=== PATIENT | female | born 1945 | race Caucasian/White ===

== ENCOUNTER 2018-08-23 10:43 | Inpatient (IN) | payer OTHER ==
[~2018-08-23] VITALS: Ht 144.8 cm; Wt 118.8 kg
[~2018-08-23 10:43] MED LIST: ALBUTEROL IH; APR50 PO; CAT0.1 PO; COZ50 PO; ECO81 PO; K10 PO; NORCO PO; PREMARIN0.625 M PO; PRILOSEC20 PO; TABL PO
[2018-08-23 10:48] VITALS: Ht 144.8 cm; Wt 118.8 kg
--- NOTE | 2018-08-23 11:21 | NUR ---
DR LENNON AT BEDSIDE WITH PT TO DISCUSS PLAN OF CARE
[2018-08-23 11:23] LABS: BASOPHIL % 0.3 % (0-2); PLATELET COUNT 400 x10^3mcL (130-400)
[2018-08-23 11:26] LABS: RED CELL DISTRIBUTION WIDTH 15.2 % (11.5-14.5)
[2018-08-23 11:34] LABS: CALCIUM 8.9 mg/dL (8.5-10.1); CHLORIDE SERUM 102 mmol/L (98-107); CREATININE SERUM 1.4 mg/dL (0.6-1.0); GLUCOSE SERUM 123 mg/dL (74-106); POTASSIUM SERUM 3.4 mmol/L (3.5-5.1); SODIUM SERUM 140 mmol/L (136-145)
[2018-08-23 11:38] LABS: ALBUMIN 3.8 g/dL (3.4-5.0); ALKALINE PHOSPHATASE 154 U/L (46-116); ALT/SGPT 29 U/L (14-59); AST/SGOT 21 U/L (15-37); BILIRUBIN TOTAL 0.71 mg/dL (0.20-1.00); LIPASE 48 IU/L (73-393); TOTAL PROTEIN, SERUM 8.3 g/dL (6.4-8.2)
--- NOTE | 2018-08-23 11:38 | NUR ---
X-RAY AT BEDSIDE WITH PT
--- NOTE | 2018-08-23 11:58 | NUR ---
PT TAKEN TO CT,
--- NOTE | 2018-08-23 12:22 | NUR ---
PT RETURNED FROM CT, IV BOLUS CONTINED. VEBRLAIZED MILD NAUSEA. NAD. SITTING COMFORTABLE. IS ABLE TO COMMUNICATE IN CLEAR SENTENCES. SON AT BEDSIDE
--- NOTE | 2018-08-23 13:15 | NUR ---
PT VERBALIZED A PINT OF BEER TODAY UNKNOWN TIME. PT APPEARS DELUSIONAL AND LAUGHES AT INAPPROPRIATE TIMES. PT WAS EDUCATED TO COOPEARTATE WITH STAFF AND CONTINUED SET BOUDNRIES PER STAFF.
[2018-08-23] MEDS ORDERED: CELEBREX200 MG PO (13:43)
[2018-08-23] MEDS ORDERED: METOPROLOL SUCC50 M2 PO (13:44)
[2018-08-23] MEDS ORDERED: NOR10 PO (13:46)
[2018-08-23] MEDS ORDERED: PANTOPRAZOLE SO40 M1 PO (13:46)
[2018-08-23] MEDS ORDERED: COZAAR100 MG PO (13:47)
--- NOTE | 2018-08-23 14:12 | NUR ---
REPORT GIVEN TO ROOSEVELT FOR ASSUME CARE OF PATICARLOS. REASSESSMENT OF PAIN IS 2/10 NAD. SPEAKS IN CLEAR SENTENCES WITHOUT DISCOMFORT
[2018-08-23 14:47] VITALS: BP 149/93
--- NOTE | 2018-08-23 14:49 | NUR ---
RECEIVED PT FROM ED VIA GRISEL. ORIENTED PT TO ROOM AND SURROUNDINGS. IV NOTED TO RAC PATENT AND INTACT. INSTRUCTED PT ON THE USE OF CALL LIGHT FOR ASSISTANCE.
--- NOTE | 2018-08-23 16:30 | NUR ---
ASSUMED CARE OF PATIENT FROM SURU- RN. PATIENT IS ALERT, ORIENTED X4, DENIES PAIN OR DISCOMFORT. DAUGHTER AT BEDSIDE. ABDOMEN IS SOFT WITH ACTIVE BOWEL SOUNDS.PATIENT HAS AN OLD SCAR AT ABDOMEN FROM A WOUND THAT HAD WOUND VAC LAST YEAR. LAST BM LAST NIGHT AND WAS WAS DIARRHEA. NO N/V AWAITING DR GONZALES CONSULTATION AT THIS TIME. CALL LIGHT WITHIN REACH. WILL CONTINUE TO MONITOR PATIENT AND MAINTAIN SAFETY.
--- NOTE | 2018-08-23 17:22 | NUR ---
DR GONZALES HERE TO SEE PATIENT. RECEIVED ORDER FOR NGT INSERTION. SPOKE WITH PATIENT'S DAUGHTER AND SHE SAID THAT PATIENT IS GETTING ANXIOUS AND COMBATIVE AT TIMES AND PATIENT'S NEPHEW WILL BE HERE SHORTLY AND ASKED STAFF TO HOLD NGT INSERTION UNTILL NEPHEW GET HERE. NS 50CC/HR INFUSING AT RT AC. WILL CONTINUE TO MONIOTR PATIENT.
[2018-08-23 17:41] VITALS: BP 148/85
--- NOTE | 2018-08-23 18:09 | NUR ---
CHARO AT BEDSIDE. NGT SIZE #14 INSERTED AT THIS TIME, RT SAMY. PATIENT TOLERATED WELL THE PROCEDURE. KUB ORDERED TO CHECK PLACEMENT. CALL LIGHT WITHIN REACH. WILL CONTINUE TO MONITOR PATIENT AND MAINTAIN SAFETY.
--- NOTE | 2018-08-23 19:07 | NUR ---
BEDSIDE REPORT GIVEN TO BARBARA. ALL QUESTIONS ANSWERED.
--- NOTE | 2018-08-23 20:21 | NUR ---
PT SEEN, RESTING IN BED, ALERT AND ORIENTED, DENIES HEADACHE OR DIZZINESS, BREATHING EVEN AND UNLABORED, LUNG SOUNDS CLEAR BUT DIMINISHED AT BASE, PT DE-SATTING ON ROOM AIR, SPO2 ONLY 86-88% ON ROOM AIR, PLACED PT ON O2 2L VIA NC WITH SPO2 > 95%, DENIES CHEST PAIN, NGT TO RT NARES, XR-ABD RESULT CAME BACK AND CONFIRMED NGT IN PLACE, DR PHAN MADE AWARE, NEW ORDER RECEIVED FOR NGT WITH LIS, STARTING NGT WITH LIS, ABD DISTENDED BUT SOFT WITH HYPOACTIVE BS, C/O OF ON AND OFF ABD PAIN, DILAUDID 0.5 MG VIA IVP ADMINISTERED, NO DISTRESS NOTED, WILL KEEP TO MONITOR.
--- NOTE | 2018-08-23 20:43 | NUR ---
dr ruiz informed about dr elliott recommendation for a surgical consult.
[2018-08-23 21:12] VITALS: BP 143/82
--- NOTE | 2018-08-23 21:30 | NUR ---
PT DENIES ANY ABD PAIN AFTER MEDICATED WITH DILAUDID IVP, NGT WITH LIS NOTED WITH 300 ML LIGHT BROWNISH OUTPUT..
--- NOTE | 2018-08-24 01:50 | NUR ---
ROUNDS MADE, PT ASLEEP AND APPEARS COMFORTABLE, NGT TO RT NARES WITH LIS, IVF INFUSING WELL, NO DISTRESS NOTED, WILL KEEP TO MONITOR.
[2018-08-24 05:24] VITALS: BP 150/79
--- NOTE | 2018-08-24 06:38 | NUR ---
PT ASLEEP BUT EASILY AROUSABLE, SLEPT MOST OF NIGHT AFTER MEDICATED WITH DILAUDID 0.5 MG VIA IVP X 1 FOR ABD PAIN WITH GOOD RELIEF, NGT TO RT NARES WITH LIS TOTAL 550ML BROWNISH OUTPUT, NO N&V NOTED, ASSISTED PT TO RESTROOM X 1 WITH CANE AND MOD ASSIST, NO DISTRESS NOTED, WILL KEEP TO MONITOR.
--- NOTE | 2018-08-24 07:12 | NUR ---
REPORT GIVEN TO ANGELICA-MALENA, ALL QUESTIONS ANSWERED AND CONCERNS ADDRESSED.
--- NOTE | 2018-08-24 08:00 | NUR ---
ALERT AND ORIENTED. HOB ELEVATED TO PREVENT ASPIRATION. NGT TO RT NARE LOW INTERMITTENT SUCTION BROWN FLUID. NC 2L. NS INFUSING 50 CC HOUR. DENIES ANY PAIN AT THIS TIME. ASSIST W ADL'S. BRP WITH ASSIST. NO TELE. SL TO RT AC PATENT. CALL LIGHT WITHIN REACH.
[2018-08-24 08:33] LABS: BASOPHIL % 0.4 % (0-2); PLATELET COUNT 332 x10^3mcL (130-400)
[2018-08-24 08:38] LABS: RED CELL DISTRIBUTION WIDTH 15.5 % (11.5-14.5)
[2018-08-24 09:19] LABS: CALCIUM 8.2 mg/dL (8.5-10.1); CARBON DIOXIDE 27.4 mmol/L (21-32); CHLORIDE SERUM 105 mmol/L (98-107); GLUCOSE SERUM 109 mg/dL (74-106); POTASSIUM SERUM 3.7 mmol/L (3.5-5.1); SODIUM SERUM 141 mmol/L (136-145)
[2018-08-24 09:27] VITALS: BP 154/86
--- NOTE | 2018-08-24 16:54 | NUR ---
ORAL CONTRAST ADMIN VIA NGT COMPLETED.
[2018-08-24 17:03] VITALS: BP 151/83
--- NOTE | 2018-08-24 18:48 | NUR ---
OUT OF ROOM FOR CT SCAN ABD/ PELVIS WITH ORAL CONTRAST VIA GT. CONTINUES ON LOW INTERMITTENT SUCTION. BROWN FLUID IN TUBING AND CANISTER.
--- NOTE | 2018-08-24 19:40 | NUR ---
RECEIVED PT BACK FROM CT A/P WITH ORAL CONTRAST, PT SEEN, HOB, ALERT AND ORIENTED, DENIES HEADACHE OR DIZZINESS, BREATHING EVEN AND UNLABORED, LUNG SOUNDS CLEAR BUT DIMINISHED AT BASE, ON O2 2L VIA NC WITH NO RESP DISTRESS NOTED, MEDSURG PT, DENIES CHEST PAIN, IVF INFUSING WELL, PULSES PALPABLE, EDEMA NOTED TO BLE, MILD GENERALIZED WEAKNESS, USES CANE TO AMBULATE, ABD DISTENDED BUT SOFT WITH HYPOACTIVE BS, NGT TO RT NARES WITH LIS NOTED WITH BROWNISH OUTPUT, STRESS INCONTINENCE AT TIMES, NO DISTRESS NOTED, WILL KEEP TO MONITOR.
--- NOTE | 2018-08-24 20:33 | NUR ---
DR MONTOYA PAGED REGARDING PT'S CT A/P WITH ORAL CONTRAST RESULT.
--- NOTE | 2018-08-24 20:40 | NUR ---
DR MOSQUERA MADE AWARE OF CT A/P WITH ORAL CONTRAST RESULT, PER DR DEMETRI TODD TO HOLD BP ORAL MEDS TONIGHT.
[2018-08-24 20:49] VITALS: BP 143/80
--- NOTE | 2018-08-24 21:22 | NUR ---
DR MONTOYA CALLED BACK AND UPDATED PT'S CONDITION WITH MD, ALSO READ BACK THE CT A/P WITH ORAL CONTRAST RESULT, TELEPHONE ORDER RECEIVED FOR NPO AND KUB IN AM, ORDER PLACED.
--- NOTE | 2018-08-24 21:58 | NUR ---
DR MONTOYA CALLED AND NEW ORDER RECEIVED FOR TYPE AND АЛЕКСАНДР, PT, PTT LAB WORKS IN , ORDER PLACED.
[2018-08-25] VITALS (11 sets, daily range): BP systolic 101–157; BP diastolic 66–87
--- NOTE | 2018-08-25 06:03 | NUR ---
PT AWAKE AND RESTING IN BED, SLEPT ON AND OFF WHOLE NIGHT, NGT TO RT NARES WITH LIS TOTAL OUTPUT- 750ML BROWNISH OUTPUT, MEDICATED WITH DILAUDID IVP X 1 FOR PAIN WITH GOOD RELIEF, CHG BATH DONE, NO DISTRESS NOTED, WILL KEEP TO MONITOR.
--- NOTE | 2018-08-25 07:00 | NUR ---
BEDSIDE HANDOFF REPORT DONE WITH ANGELICA-RN, ALL QUESTIONS ANSWERED AND CONCERNS ADDRESSED.
[2018-08-25 07:14] LABS: CALCIUM 8.5 mg/dL (8.5-10.1); CARBON DIOXIDE 28.7 mmol/L (21-32); CHLORIDE SERUM 106 mmol/L (98-107); CREATININE SERUM 0.8 mg/dL (0.6-1.0); GLUCOSE SERUM 84 mg/dL (74-106); POTASSIUM SERUM 3.4 mmol/L (3.5-5.1); SODIUM SERUM 142 mmol/L (136-145)
--- NOTE | 2018-08-25 07:40 | NUR ---
ALERT AND ORIENTED. HOB SLIGHTLY ELEVATED TO PROMOTE BREATHING,PREVENT ASPIRATION AND COMFORT. BREATHING FREELY ON 02 2L NC. NGT TO RT NARE. DRAINING BROWNISH FLUID TO CANISTER. ABD SOFT AND ROUND. BOWEL SOUNDS PRESENT, NONE NOTED TO LOWER LEFT. NS INFUISNG 50 CC HOUR TO RT AC. DENIES PAIN OR NAUSEA AT THIS TIME. DISCOMFORT TO LOWER LEFT ABD WITH PALPATION. BRP WITH ASSIST.SON AT BEDSIDE. NPO. CONSULT WITH DR. MONTOYA ORDERED. CALL LIGHT WITHIN REACH.
--- NOTE | 2018-08-25 08:00 | NUR ---
PTS DTR ELSA TOLD ME HER MOTHER HAD TO BE INTUBATED AND WENT TO CIU AFTER EACH OF THREE SURGERIES BECAUSE SHE HAS DIFFICULTY COMING OUT OF ANESTHESIA. REPORTED THIS TO ERVIN DURING PREOP REPORT.
[2018-08-25 09:04] LABS: BASOPHIL % 0.3 % (0-2); PLATELET COUNT 325 x10^3mcL (130-400)
[2018-08-25 09:05] LABS: RED CELL DISTRIBUTION WIDTH 15.2 % (11.5-14.5)
--- NOTE | 2018-08-25 09:14 | NUR ---
PT LEFT FLOOR FOR SURGERY. VIA BED. CK LIST AND CONSENTS COMPLETED. IV HL'D NGT CLAMPED.
--- NOTE | 2018-08-25 09:54 | NUR ---
SPOKE WITH ERVIN CAMP FROM OR. PT WILL BE GOING TO ICU POST OP FOR RECOVERY. WILL KEEP ME INFORMED WITH ANY UPDATES.
--- NOTE | 2018-08-25 12:30 | NUR ---
RECEIVED PATIENT FROM OR/RECOVERY, PATIENT S/P EXP LAPAROTOMY W/ REPAIR OF INCARCERATED VENTRAL HERNIA W/ MESH PLACEMENT. PATIENT SLEEPING BUT ARROUSABLE AND BECOMING MORE ALERT, FOLLOWS SIMPLE COMMANDS, RESPONDS W/ GESTURES. 7.[address] WITH 20 LL. VENT SETTINGS RATE 12, TIDAL VOLUME 500, PEEP 5 AND FIO2 100. LUNGS DIM BILAT. BREATHING EVEN/UNLABORED AT THIS TIME. ABD WITH MIDLINE INCISION CLOSED WITH TEODORA PER REPORT, GAUZE, TEFLA, ABD PAD, ABD BINDER. BOWEL SOUNDS HYPOACTIVE, ABD DISTENDED/SOFT. NGT TO RT NARES CLAMPED. PER REPORT, 2L LR INTAKE AND 30ML EBL AND 225ML URINE OUTPUT THROUGH VANCE DRAIING YELLOW/CLEAR TO GRAVITY. IV SITE TO RAC WNL, NO REDNESS/SWELLING. SMALL HEALING RASH/SCRATCH TO LT THIGH, NO ACTIVE BLEEDING/DRAINAGE, JAYNA. PERIPHERAL PULSES PALPABLE, CAP REFILL <3 SEC. MILD GENERALIZED NONPITTING EDEMA. CALL LIGHT AND TV REMOTE CONTROL WITHIN REACH. HOB ELEVATED. WILL CONT TO MONITOR.
--- NOTE | 2018-08-25 13:00 | NUR ---
PATIENT C/O ABD PAIN, DILAUDID 0.5MG GIVEN. SOME DIFFICULTY BREATHING NOTED, RESP THERAPIST AT BEDSIDE. ORAL SUCTIONING PROVIDED WITH SOME RELIEF. D5 1/2 NS FLUIDS, VERSED AND FENTANYL IV INITIATED PER DR MONTES. SON AT BEDSIDE. WILL CONT TO MONITOR.
--- NOTE | 2018-08-25 13:44 | NUR ---
DECREASED FIO2 TO 40% AND INCREASED RR TO 16 POST INTUBATION ABG COLLECTION AND RESULTS CONFIRMED.
--- NOTE | 2018-08-25 14:41 | NUR ---
SCDS TO BLE APPLIED.
--- NOTE | 2018-08-25 16:36 | NUR ---
SPOKE TO BOTTLE WASHER TK Pisano VIA PHONE, INFORMED HER OF POTASSIUM LEVEL 3.4 TELEPHONE READBACK ORDERS RECEIVED FOR 40MEQ K-RIDER WITH LIDOCAINE IV. PLACED.
--- NOTE | 2018-08-25 19:05 | NUR ---
RECEIVED REPORT FROM MARIA LUISA GUY. ASSUMING ALL CARE
--- NOTE | 2018-08-25 19:15 | NUR ---
RECEIVED PT INTUBATED AND SEDATED ON VERSED @ 2 MG/HR AND FENTANYL @ 2 MCG/KG/HR. ABLE TO FOLLOW COMMANDS. RESPONDS TO VERBAL STIMULI. RSS=4. GAG REFLEX PRESENT. 7.5 ETT INTACT/SECURED, 20 CM @ LL. RIGHT NGT PLACED ON LIS WITH BILE COLORED DRAINAGE. ETT TO VENT, VCV/AC MODE: RATE 16, VT 500, PEEP 5, FIO2 40%. BREATHING IS E/U. LUNGS SOUND CLEAR TO BUL AND DIMIN TO BLL. SYMMETRICAL CHEST EXPANSION NOTED. PALPABLE PULSES X4 EXTREMETIES. SKIN IS WARM AND DRY. NONPITTING EDEMA NOTED TO BUE/BLE. RFA AND RAC IV INTACT SECURED, DRESSING CDI. D5 1/2 NS INFUSING @ 100 ML/HR AND POTASSIUM CHLORIDE WITH LIDOCAINE INFUSING @ 68 ML/HR. SCD IN PLACE. PT ON BEDREST. GENERALIZED WEAKNESS. PASSIVE FULL ROM. PT NPO AT THIS TIME. NO N/V NOTED. ABD IS SOFT, ROUND, NONTENDER TO PALPATION. BOWEL SOUNDS HYPOACTIVE X 4 QUADRANTS. NO BM NOTED. MID ABD INCISION WITH ABD DRESSING CDI. ABD PAD IN PLACE S/P EXP LAP. VANCE INTACT/SECURED, DRAINING VIA GRAVITY WITH YELLOW COLORED URINE. LEFT THIGHT SCRATCH GOLF BALL WINDER. PT REPOSITIONED Q2H AND PRN FOR COMFORT. PT CALM AT THIS TIME. BED IN LOW POSITION. CALL LIGHT IN REACH. WILL CONT TO MONITOR
--- NOTE | 2018-08-25 19:18 | NUR ---
PATIENT PASSED GAS AND HAD SMALL SMEAR TO LINEN, CLEANSED AND REPOSITIONED, TOLERATED WELL. ORAL SUCTIONING PROVIDED. NO OTHER SIGNFICANT CHANGE IN CONDITION. REPORT GIVEN TO [facility] NURSE, NO ACUTE DISTRESS AT THIS TIME.
--- NOTE | 2018-08-25 23:40 | NUR ---
SPOKE TO PT'S DAUGHTER ELSA VIA TELEPHONE. UPDATES PROVIDED.
[2018-08-26] VITALS (14 sets, daily range): BP systolic 97–132; BP diastolic 58–84
--- NOTE | 2018-08-26 02:00 | NUR ---
FENTANYL TITRATED TO 1 MCG/KG/HR IN PREPARATION FOR CPAP TRIAL DURING DAY SHIFT
--- NOTE | 2018-08-26 03:00 | NUR ---
VERSED TITRATED TO 1 MG/HR.
--- NOTE | 2018-08-26 04:00 | NUR ---
FENTANYL TURNED OFF AT THIS TIME.
--- NOTE | 2018-08-26 04:59 | NUR ---
VERSED TURNED OFF AT THIS TIME.
--- NOTE | 2018-08-26 05:05 | NUR ---
SPOKE TO DR. MONTOYA VIA TELEPHONE. UPDATES PROVIDED. PER DR. MONTOYA, CHANGE THE RATE TO THE IV FLUID TO 70 ML/HR AND ADMINISTER LASIX 10 MG IVP ONCE. ORDERS READ BACK AND IN AGREEMENT. WILL CARRY OUT ORDER.
--- NOTE | 2018-08-26 05:30 | NUR ---
FULL BED BATH PROVIDED. GOWN AND LINENS CHAGED. ORAL AND VANCE CARE PROVIDED
[2018-08-26 05:56] LABS: BASOPHIL % 0.1 % (0-2); PLATELET COUNT 293 x10^3mcL (130-400)
[2018-08-26 05:57] LABS: RED CELL DISTRIBUTION WIDTH 15.1 % (11.5-14.5)
[2018-08-26 06:03] LABS: CHLORIDE SERUM 106 mmol/L (98-107); CREATININE SERUM 1.2 mg/dL (0.6-1.0); GLUCOSE SERUM 144 mg/dL (74-106); MAGNESIUM 1.8 mg/dL (1.8-2.4); PHOSPHOROUS 2.9 mg/dL (2.5-4.9); POTASSIUM SERUM 3.9 mmol/L (3.5-5.1); SODIUM SERUM 143 mmol/L (136-145)
--- NOTE | 2018-08-26 06:11 | NUR ---
PT POINTING TO HER ABD. WHEN ASKED IF PT WAS IN PAIN, PT NODDED HEAD YES. PT MEDICATED WITH DILAUDID 0.5 MG IVP PER EMAR. WILL CONT TO MONITOR
--- NOTE | 2018-08-26 07:15 | NUR ---
REPORT GIVEN TO MARC GUY. ALL QUESTIONS/CONCERNS ADDRESSED AT THIS TIME. ENDORSING ALL CARE
--- NOTE | 2018-08-26 07:30 | NUR ---
RECEIVED PT'S REPORT FROM LEAVING NURSE. PT SEEN REST ON BED, ALERT, AWAKE, PT NO COMPLAIN OF PAIN WITH OPEN EYES, SHAKING HEAD. PT IS INTUBATED ON AC MODE, 500, FIO2 35, PEEP 5, RATE 16. O2 SAT 98%. PER LEAVING NURSE REPORT, AT ABOUT 0500AM, VERSED AND FENT ARE STOPED PER ORDERED. NGT IN PLACE, CONNECTED TO WALL LOW INTERMINTEN SUCTION. GREENISH DRAINAGE NOTED. VANCE IN PLACE, DRAINING FREELY VIA GRAVITY. URINE COLOR ANDRE CLOUDY. ABD INCISION SITE COVERED WITH POST-OP DRESSING WITH ABD BINDER, CDI. IV SITE PATENT, INTACT. D5 1/2 NS INFUSING AT 70 ML/HR. WILL CONTINUE TO MONITOR.
--- NOTE | 2018-08-26 07:45 | NUR ---
DR. MONTOYA CHECKED PT, NO NEW ORDER BY THIS TIME.
--- NOTE | 2018-08-26 08:42 | NUR ---
PLACED PT ON CPAP 5 WITH PSV 12 AND FIO2 35%.
--- NOTE | 2018-08-26 10:40 | NUR ---
PT'S SON AND DAUGHTER AT BED SIDE. PT GOT EXTUBATED. WILL CONTINUE TO MONITOR.
--- NOTE | 2018-08-26 11:02 | NUR ---
PT BREATHING ON O2 4L VIA NC, EVEN, UNLABORED. PT STAYED CALM. PAIN IS RESOLVED WELL BY DILAUDID. PT'S DAUGHTER AT BED SIDE. NGT CONNECTED TO WALL LOW INTERMINTENT SUCTION. GREENISH FLUID DRAINED.
--- NOTE | 2018-08-26 12:45 | NUR ---
DC NGT PER DR. MONTOYA'S ORDER. PT TOLERATES WELL. TOTAL SUCTION OUT 400ML VIA NGT BY THIS TIME. PT REMAINING NPO EXCEPT MEDS. PT BREATHING ON O2 4L VIA NC, O2 SAT 96%. WILL CONTINUE TO MONITOR.
--- NOTE | 2018-08-26 13:06 | NUR ---
DECREASED NASAL CANNULA FLOW FROM 4 L/MIN TO 2 L/MIN.
--- NOTE | 2018-08-26 13:23 | NUR ---
PT GOT BREATHING TREATMENT, RT WEANING O2 FROM 4L TO 2.5L VIA NC, PT TOLERATE WELL, O2 SAT REMAIN 95%. PT NO COMPLAIN OF PAIN AT THIS TIME. WILL CONTINUE TO MONITOR.
--- NOTE | 2018-08-26 13:41 | NUR ---
PATIENT NOTED TO BE MOUTH BREATHING WHILE AT SLEEP. SPO2 87%. FIO2 TITRATED TO 4 LPM ON NASAL CANNULA WITH SPO2 INCREASING TO 95%.
--- NOTE | 2018-08-26 14:55 | NUR ---
Initial Nutrition Assessment Dx: Partial SBO PMHx: HTN, Hernia, A-Fib PSHx: Hernia repair Labs: (08/26) Na 143, K 3.9, BG 144H, BUN 19H, Cr 1.2H,WBC 11.7H, H/H 11.8L/34L Meds: Apresoline, Aspirin, Catapres, Cozaar, D5-45%, Dilaudid, MOM, [place], Norvasc, Premarin, Protonix, Sublimaze, Toradol, Zofran, Versed, Ancef, Toprol Diet: NPO since admission on 08/23 (x3 days) PO Intake: N/A I and O: (08/26) 3870/1505 +2365 (08/25) 1200/1300 -100 (08/24) 1230/550 +680 Gastric drainage from NGT: (08/26) 650 mL (08/25) 1100 mL (08/24) 550 mL greenish, bile-like output Ht: 57" (145 cm) Wt: 249# (113.4 kg) BMI: 54.1 (Morbidly obese) IBW: 94# %IBW: 264% AJBW: 133# (60.3 kg) UBW: 230-240# per family Age: 72 y/o elderly female Food Allergies: NKFA Skin: Surgical site at mid abdominal region Bakari: 16 Edema: Trace to BLE GI: Last BM x smear (08/25) per clerical administrator notes. Per H&P, pt. admitted with abdominal pain x 2 days associated with non-radiating pain in the umbilical region, N/V/D, and generalized ill feeling after consuming foods. Hx hernia repair (date unknown). Abdominal/Pelvis CT scan with contrast conducted on 08/25 had findings consistent with moderately dilated herniated bowel loop, ventral hernia, and suggestive findings of partial SBO. KUB conducted on 08/25 also had findings consistent with partial SBO with possibly closed loop partial obstruction with NGT tip found within the stomach per provider notes. Lap appy conducted on 08/25, and pt. was intubated post procedure. Pt. seen post extubation and unable to answer nutrition related questions; pt. family present at bedside to assist in answering questions. Endorses that pt. does not have GI distress at this time and a small amount of BM this afternoon. Pt. wanting to advance to clear liquid diet; awaiting nursing swallow screen. Problem with: No c/o N/V/D/C Problems with: Chewing: N Swallowing: N Current appetite: N/A Recent wt change: None %wt change: N/A Vitamin/Supplement use: None Special diet at home: Regular per trading floor operator assessment Physical activity: None at this time d/t illness Education: No diet education provided. Estimated Nutritional Needs Based on adjusted body weight 60.3 kg: Energy: 5959-8275 kcal/d (23-25 kcal/kg for morbid obesity and wound healing) Protein: 72-90 g/d (1.2-1.5 g/kg IBW)-Wound healing and preservation of lean body mass Fluid: 5215-6349 ml/d (1 ml/kcal-fluid balance) or per doctor Nutrition Diagnosis 1. Inadequate PO intake r/t current diet order 2/2 pathophysiological condition AEB pt. on ventilator and NPO x 3 days, meeting <75% estimated calorie and protein needs. 2. Increased nutrient needs r/t altered metabolic demands AEB recent surgical procedure and presence of mid abdominal wound. Intervention/RD recommendations 1. Plans in place to wean pt. off of ventilator today 08/26. When medically able, advance PO diet as tolerated. Advance to CLD, then FLD, and if tolerating well, advance to regular diet. 2. If PO intake <75% estimated needs by following assessment, will add ONS for increased nutrient needs/inadequate PO intake. 3. If pt. unable to tolerate PO diet/TF infusions d/t SBO >7 days, consider initiation of nutrition support. Monitor/Evaluate Goal: PO intake at least 75% of estimated needs Monitor: PO intake, Labs, GI function, diet tolerance F/U in 2-3 days as high risk (08/28-08/29)
--- NOTE | 2018-08-26 17:05 | NUR ---
PHYSICAL THERAPIST AT BED SIDE, GOT PT SITTING ON BED, DANGLING LEGS. PT BREATHING ON O2 2L VIA NC. PT REPORTED PAIN, WILL PROVIDE PAIN MANAGEMENT PER ORDER.
--- NOTE | 2018-08-26 19:23 | NUR ---
ENDORSE PT'S CARE TO RECEIVING NURSE. PT IS A/O X4, BREATHING ON O2 3L VIA NC, EVEN, UNLABORED. IV SITE PATENT, INTACT. IVF INFUSING WELL.
--- NOTE | 2018-08-26 19:30 | NUR ---
RECEIVED PT IN BED AWAKE, ALERT,ORIENTED X4. NO C/O HEADACHE AND DIZZINESS. NO SOB AT THIS TIME. ON O2 AT 3L VIA N/C. BOWEL SOUNDS HYPOACTIVE. SX SITE TO ABDOMEN W/ DRESSING AND ABDL BINDER IN PLACE. DRESSING CDI. PT STATED SHE HAS PAIN 8/10 BUT REFUSES PAIN MED. AT THIS TIME. W/ VANCE CATH DRAINING ANDRE URINE. W/ IVF D51/2 NS AT 70 CC/HR VIA RTAC. W/ HL TO RTFA. CALL LIGHT W/IN REACH.
--- NOTE | 2018-08-26 21:03 | NUR ---
PT MEDICATED W/ DILAUDID 0.5 MG IV FOR PAIN TO SX SITE 03/22.
--- NOTE | 2018-08-26 22:27 | NUR ---
PT NOW SLEEPING W/ BIPAP ON.
--- NOTE | 2018-08-26 23:36 | NUR ---
PT ASLEEP BUT EASILY AROUSABLE. SHE REMAINS ORIENTED X3. NO SOB NOTED. PT ON BIPAP . TEMP=99.2 AT THIS TIME. BOWEL SOUNDS HYPOACTIVE. DRESSING AND ABDL BINDER IN PLACE. PT HAS NO C/O PAIN AT THIS TIME. VANCE CATH INTACT AND PATENT. IVF D51/2 NS INFUSING AT 70 CC/HR VIA RTAC. CALL LIGHT W/IN REACH.
[2018-08-27] VITALS (9 sets, daily range): BP systolic 101–120; BP diastolic 54–93
--- NOTE | 2018-08-27 01:05 | NUR ---
PT REQUESTED TO HAVE BIPAP REMOVED SAYING " I COUDN'T SLEEP". BIPAP REMOVED. PT IS SATTING 94% AT THIS TIME. PT PLACED ON O2 AT 3L N/C.
--- NOTE | 2018-08-27 01:59 | NUR ---
PT SLEEPING ON AND OFF . RESP. EVEN AND UNLABORED AND SATTING 94% ON O2 AT 3L N/C.
--- NOTE | 2018-08-27 03:43 | NUR ---
PT APPEARS TO BE SLEEPING BUT EASILY AROUSABLE. SHE ANSWERED "I'M OKAY" WHEN ASKED HOW SHE IS. NO SOB NOTED. PT SATTING 95% ON O2 AT 3L VIA N/C. SHE HAS NO C/O PAIN AT THIS TIME. DRESSING AND ABDL BINDER INTACT. VANCE CATH PATENT DRAINING ANDRE URINE. IVF D51/2 NS INFUSING WELL AT 70 CC/HR VIA RTAC. CALL LIGHT IS W/IN REACH.
--- NOTE | 2018-08-27 05:35 | NUR ---
DR. MONTOYA CALLED TO CHECK ON PT. INFORMED HIM REGARDING PT'S INTAKE AND OUTPUT FOR THIS SHIFT. ORDER GIVEN.
[2018-08-27 05:47] LABS: BASOPHIL % 0.3 % (0-2); PLATELET COUNT 290 x10^3mcL (130-400)
[2018-08-27 05:50] LABS: RED CELL DISTRIBUTION WIDTH 15.4 % (11.5-14.5)
[2018-08-27 05:52] LABS: CALCIUM 7.9 mg/dL (8.5-10.1); CARBON DIOXIDE 31.7 mmol/L (21-32); CHLORIDE SERUM 105 mmol/L (98-107); GLUCOSE SERUM 121 mg/dL (74-106); MAGNESIUM 1.7 mg/dL (1.8-2.4); PHOSPHOROUS 3.5 mg/dL (2.5-4.9); POTASSIUM SERUM 3.7 mmol/L (3.5-5.1); SODIUM SERUM 142 mmol/L (136-145)
--- NOTE | 2018-08-27 05:56 | NUR ---
PT AWAKE AND WATCHING TV AT THIS TIME. NO RESP. DISTRESS NOTED. SHE REMAINS ALERT AND ORIENTED X4. SHE IS CALM AND COOPERATIVE W/ CARE. SHE WAS MEDICATED FOR PAIN X1. DRESSING TO ABDOMEN AND ABDL BINDER REMAINS INTACT AND CLEAN. VANCE CATH INTACT AND PATENT W/ 200 CC ANDRE URINE. VANCE CATH CARE DONE PER PROTOCOL. IVF D5 1/2NS INFUSING WELL AT 70 CC/HR VIA RTAC. ALL NEEDS ATTENDED TO.
--- NOTE | 2018-08-27 06:50 | NUR ---
DR. MONTOYA CALLED. INFORMED HIM REGARDING BUN=16.0 AND CREA=1.0 (WNL). ORDER GIVEN TO LOWER IVF RATE TO 60CC/HR.
--- NOTE | 2018-08-27 07:00 | NUR ---
PT REQUESTED TO SIT ON THE CHAIR. HELPED PT GET OOB TO CHAIR.
--- NOTE | 2018-08-27 07:10 | NUR ---
REPORT GIVEN TO AM NURSE.
--- NOTE | 2018-08-27 07:40 | NUR ---
THE PATIENT WAS SITTING IN A CHAIR AT BEDSIDE; AWAKE AND ORIENTED TO PERSON, PLACE AND TIME. PATIENT DENIED SHORTNESS OF BREATH, NOR NAUSEA/VOMITING AT THIS TIME. PATIENT STATED HAVING SOME ACHING AT INCISION AT MID ABD. WITH MOVEMENT AND SOME COMFORT IN THROAT. THE PATIENT REFUSED PAIN MED AT THIS TIME. IVF D5 1/2 VIA H/L TO RAC AND ANOTHER H/L TO RFA. TELE # 4 READS NORMAL SINUS RHYTHMS AT THIS TIME. THE PATIENT WAS ASSISTED TO GO BACK TO BED AND SIT IN BED. CALL LIGHT WITHIN REACH. SIDE RAILS UP X3. BED WAS AT LOWEST POSITION, AND ALARM WAS ON.
--- NOTE | 2018-08-27 08:05 | NUR ---
RECEIVED TELEPHONE ORDER FROM DR. MONTOYA: START FULL LIQUID DIET FOR BREAKFAST AND CHANGE IVF RATE TO 40CC/HR. WILL CARRY OUT THE ORDER.
--- NOTE | 2018-08-27 08:19 | NUR ---
RECEIVED THE PHONE CALL FROM DR. MONTOYA AGAIN TO REDUCE IVF RATE TO 20CC/HR. WILL CARRY OUT THE ORDER.
--- NOTE | 2018-08-27 09:30 | NUR ---
DR. ADAM WAS NOTIFIED THAT THE PATIENT'S BP THIS MORNING WAS NOT HIGH; SBP <120, SO ONLY TOPROL XL 50MG PO WAS ADMINISTERED TO THE PATIENT THIS MORNING. THE REST OF BP MEDS WERE HELD. DOCTOR AGREED WITH THAT.
--- NOTE | 2018-08-27 11:02 | NUR ---
DR. RODRIGUEZ AND THE TEAM WERE MAKING ROUND TO SEE THE PATIENT.
--- NOTE | 2018-08-27 15:19 | NUR ---
PHYSICAL THERAPY DAILY NOTES CO-SIGN All documentation done by the Tank Bottom Assembler for 08/27/18 has been reviewed. I agree with the documentation. Reviewed/Co-Signed by: Lorrie Oleary Documentation Done by:LILIAN MA
--- NOTE | 2018-08-27 17:00 | NUR ---
DR. ADAM WAS NOTIFIED THAT THE PATIENT'S MG LEVEL WAS 1.7. NO FURTHER ORDER RECEIVED AT THIS TIME. THE PATIENT STARTED TO HAVE FULL LIQUID DIET THIS MORNING.
--- NOTE | 2018-08-27 17:22 | NUR ---
REPORT WAS GIVEN TO MALENA WADDELL FROM [facility]. CONCERNS WERE ADDRESSED. AWAITING FOR THE PATIENT TO FINISH DINNER BEFORE TRANFERRING THE PATIENT TO ROOM 241B, [facility].
--- NOTE | 2018-08-27 17:59 | NUR ---
THE [facility] CATH WAS REMOVED PER DR. MONTOYA'S ORDER; THE [facility] CATH TIP WAS INTACT AND 1200 ML OF URINE OUTPUT WAS NOTIED IN THE BAG. THE PATIENT'S SON, ERVIN WAS CALLED AND NOTIFIED OF THE PATIENT'S TRANSFER TO ROOM [address] ON [facility]. THE PATIENT WAS TRANSFERRED TO THE [facility] NOW.
--- NOTE | 2018-08-27 19:16 | NUR ---
RECIEVED PT FROM ICU. PT IS AWAKE, ALERT, AND ORIENTED. HAS NO COMPLAINT OF PAIN, SOB, OR DIZZINESS. RESPONDS WELL TO QUESTION AND ANSWER. ACTIVE BOWEL SOUNDS NOTED. DISTENDED ABDOMEN. PT IS S/P EX-LAP ON 08/25/18. ABD PAD AND BINDER IN PLACE. DRESSING IS CDI. PT ON 2LNC, CLEAR OBDULIO LUNG FIELD, SYMMETRICAL CHEST EXPANSION AND UNLABORED. SIDE RAILS UP, CALL LIGHT WITHIN REACH, WILL CONTINUE TO MONITOR
--- NOTE | 2018-08-27 20:00 | NUR ---
PT A/A/O X4. DENIES DIZZINESS AND HEADACHE. BREATH SOUNDS CLEAR. BREATHING EVEN AND UNLABORED ON 2L NC. DENIES SOB THUS FAR. C/O MILD DISCOMFORT WHEN SWALLOWING MEDS. DENIES NEED FOR PAIN MEDICATION THUS FAR. DENIES CHEST PAIN AND PRESSURE. BOWEL SOUNDS ACTIVE. NO C/O N/V AND ABD PAIN. DRESSING ON THE ABD NOTED C/D/I WITH ABDOMINAL BINDER IN PLACE. TRACE EDEMA NOTED ON BLE. MADE PT COMFORTABLE. PLACED CALL LIGHT WITH IN REACH. WILL CONTINUE TO MONITOR.
--- NOTE | 2018-08-27 23:26 | NUR ---
PT C/O HAVING BLACK STOOL X2. DR. PHAN NOTIFIED. INSTRUCTED THE PT NOT TO FLUSH THE TOILET IF SHE HAS A BOWEL MOVEMENT AGAIN FOR THE NURSE TO ASSESS STOOL. PT VERBALIZED UNDERSTADING. WILL CONTINUE TO MONITOR.
[2018-08-28] VITALS (7 sets, daily range): BP systolic 105–153; BP diastolic 56–91
--- NOTE | 2018-08-28 00:37 | NUR ---
SPOKE WITH PATIENT @2017 ADVISED PATIENT THAT BIPAP IS ORDERED FOR NIGHT TIME. PATIENT SAID WILL GO ON LATER WHEN GOES TO SLEEP. CHECKED PATIENT @2300 AND STATED THAT SHE WAS NOT READY TO GO ON. CHECKED PATIENT @0032 AND STATED THAT SHE DOES NOT WANT TO GO ON BECAUSE SHE DOES NOT SLEEP WELL. PATIENT APPEARS ALERT AND ORIENTED.
--- NOTE | 2018-08-28 01:08 | NUR ---
PT RESTING WITH EYES CLOSED. NO DISTRESS AND DISCOMFORT NOTED. WILL CONTINUE TO MONITOR.
[2018-08-28 06:24] LABS: CALCIUM 8.4 mg/dL (8.5-10.1); CARBON DIOXIDE 30.3 mmol/L (21-32); CHLORIDE SERUM 105 mmol/L (98-107); CREATININE SERUM 0.9 mg/dL (0.6-1.0); GLUCOSE SERUM 114 mg/dL (74-106); POTASSIUM SERUM 3.2 mmol/L (3.5-5.1); SODIUM SERUM 142 mmol/L (136-145)
--- NOTE | 2018-08-28 06:44 | NUR ---
PT QUIET AND RESTING. SITTING IN A CHAIR. PT DENIES PAIN THUS FAR. DRESSING ON THE ABD C/D/I. IV INTACT AND INFUSING ORDERED. MADE PT COMFORTABLE. WILL CONTINUE TO MONITOR.
--- NOTE | 2018-08-28 07:15 | NUR ---
RECEIVED PT FROM TRINO RN. PT FOUND RESTING IN CHAIR AT SIDE OF BED. EASILY AROUSABLE TO VERBAL STIMULI. FACE SYMMETRICAL, SPEECH CLEAR, AA/OX4. FOLLOWS COMPLEX COMMANDS. NO S/S OF ACUTE DISTRESS. NO SOB ON 2LNC. RR EVEN/UNLABORED. CHEST EXP. SYMMETRICAL. NO CHEST PAIN. IVS WNL TO RAC/RFA. PATENT, NO REDNESS, NO SWELLING, NO INFILTRATION. SALINE LOCKED TO RAC, IV FLUIDS FLOWING TO RFA. PT CALM/COOPERATIVE.
[2018-08-28 08:19] LABS: BASOPHIL % 0.3 % (0-2); PLATELET COUNT 289 x10^3mcL (130-400); RED CELL DISTRIBUTION WIDTH 15.5 % (11.5-14.5)
--- NOTE | 2018-08-28 08:20 | NUR ---
RECEIVED TELEPHONE ORDERS FROM DR. MONTOYA FOR LASIX 20 MG IVP ONE TIME, AND REDUCE D51/2 NS TO 10ML/HR. ORDERS REPEATED BACK TO PHYSICIAN. VERIFIED BY DR. MONTOYA. ENTERED. WILL CARRY OUT.
--- NOTE | 2018-08-28 12:48 | NUR ---
PT EATING LUNCH. TOLERATING FULL LIQUID DIET WELL. NO N/V. PASSING GAS. NO ABD. PAIN. NO S/S OF ACUTE DISTRESS. AA/OX4. NO CHEST PAIN. NO SOB ON ROOM AIR. PT CALM/COOPERATIVE. BED IN LOW POSITION. CALL LIGHT WITHIN REACH. WILL CONT. TO MONITOR.
--- NOTE | 2018-08-28 15:21 | NUR ---
Follow-Up Nutrition Assessment Dx: Partial SBO Labs: (08/28) Na 142, K 3.2L, BG 114H, BUN 18, Cr 0.9, WBC 8.7, H/H 11.2L/33L Meds: Apresoline, Aspirin, Catapres, Cozaar, D5-45%, Dilaudid, Lasix, MOM, [place], Norvasc, Premarin, Protonix, Reglan, Toradol, Zofran, Ancef, Toprol Diet: FLD Gastric drainage from NGT: (08/27) 500 mL PO Intake: (08/28) B/L 100% (08/27) B/L: 50% D: 55% Wt: (08/28) 118.8 kg (08/26) 113.4 kg; weight gain d/t fluid shifts and positive fluid balance. Skin: Surgical site at mid abdominal region Bakari: 18 Edema: Pitting edema +1 to BLE GI: Last BM x 1 (08/28) per provider Per provider progress notes, pt. is post-operative day 3 and endorses moderate, but improving pain from hernia repair conducted on 08/25. Extubated on 08/26, and now on room air; no respiratory support equipment needed. Reports continued throat pain likely r/t recent intubation. Pt. sitting up in bed during visit with pt. family present at bedside to assist in answering questions. Endorses that pt. does not have GI distress at this time and is tolerating full liquid diet with no s/s intolerance. Plans in place to D/C to home tomorrow, as pt. has been medically improving per RN. Estimated Nutritional Needs Based on adjusted body weight 60.3 kg: No changes to previous assessment. Energy: 5847-6272 kcal/d (23-25 kcal/kg for morbid obesity and wound healing) Protein: 72-90 g/d (1.2-1.5 g/kg IBW)-Wound healing and preservation of lean body mass Fluid: 3285-5868 ml/d (1 ml/kcal-fluid balance) or per doctor Nutrition Diagnosis 1. Inadequate PO intake r/t current diet order 2/2 pathophysiological condition AEB current diet order (FLD) meeting <75% estimated calorie and protein needs. (Modified-ongoing) 2. Increased nutrient needs r/t altered metabolic demands AEB recent surgical procedure and presence of mid abdominal wound. (Ongoing) Intervention/RD recommendations 1. When medically able, advance diet to regular diet as tolerated. Continue Ensure Enlive or Boost TID with meals as ordered for supplementation. Ensure Enlive TID provides an additional 1080 kcal and 60 g protein. Monitor/Evaluate Goal: PO intake at least 75% of estimated needs (not met-improving) New goal: PO intake at least 75% of estimated needs and advancement of PO diet Monitor: PO intake, Labs, GI function, diet tolerance F/U in 3-5 days as moderate risk (08/31-09/02)
--- NOTE | 2018-08-28 18:28 | NUR ---
PT SITTING IN CHAIR AT SIDE OF BED. AA/OX4. NO S/S OF ACUTE DISTRESS. NO COMPLAINT OF PAIN. NO SOB ON ROOM AIR. TOLERATING FULL LIQUID DIET WELL. NO N/V. NO ABD. PAIN. DRESSING TO ABD. CDI. ABD. DRESSING IN PLACE. IV WNL TO RAC, PATENT, FLUSHES WELL. NO REDNESS, NO SWELLING, NO INFILTRATION. IV ANTIBIOTICS FLOWING. BED IN LOW POSITION. CALL LIGHT WITHIN REACH. WILL ENDORSE TO ONCOMING SHIFT.
--- NOTE | 2018-08-28 19:21 | NUR ---
RECEIVED PT FROM DAY SHIFT RN. BAE. TELE #18 SHOWING NSR, DENIES CP. S/P 08/25/18 VENTRAL HERNIA REPAIR, ABD DRESSING IN PLACE, CDI. FINE CRACKLES NOTED UPPER LOBES WITH DIMINISHED BASES, NO SOB, BREATHING E/U ON RA. ABD SOFT/ROUND, BOWEL SOUNDS HYPOACTIVE X4 QUADS, DENIES N/V. PULSES PALPABLE, TRACE PITTING EDEMA TO BLE AND BUE. IV SITE CDI, NO S/S REDNESS OR SWELLING, SALINE-LOCKED. CALL LIGHT WITHIN REACH. WILL CONTINUE TO MONITOR.
--- NOTE | 2018-08-28 19:24 | NUR ---
RECEIVED PT FROM DAY SHIFT RN. KATHIA. TELE #18 SHOWING NSR, DENIES CP. S/P 08/25/18 VENTRAL HERNIA REPAIR, ABD DRESSING IN PLACE, CDI. LUNG SOUNDS CTAB, NO SOB, BREATHING E/U ON RA. ABD SOFT/ROUND, BOWEL SOUNDS HYPOACTIVE X4 QUADS, DENIES N/V. PULSES PALPABLE, TRACE PITTING EDEMA TO BLE AND BUE. IV SITE CDI, NO S/S REDNESS OR SWELLING, SALINE-LOCKED. CALL LIGHT WITHIN REACH. WILL CONTINUE TO MONITOR.
--- NOTE | 2018-08-29 00:21 | NUR ---
PT RESTING IN BED. BIPAP IN USE. BREATHING E/U. NO INDICATIONS OF PAIN NOTED. CALL LIGHT WITHIN REACH. WILL CONTINUE TO MONITOR.
--- NOTE | 2018-08-29 02:47 | NUR ---
PT C/O 03/22 SHARP ABD PAIN AFTER AMBULATING TO BATHROOM. MEDICATED PER EMAR.
[2018-08-29 04:16] VITALS: BP 153/91
[2018-08-29 05:45] VITALS: BP 114/64
--- NOTE | 2018-08-29 06:23 | NUR ---
PT HAD RESTFUL NIGHT. DENIES PAIN. APPEARS COMFORTABLE. BREATHING E/U. NO CHANGES OVERNIGHT. ALL NEEDS MET AND ATTENDED TO. NO S/S ACUTE DISTRESS. CALL LIGHT WITHIN REACH. WILL CONTINUE TO MONITOR.
[2018-08-29 06:44] LABS: CALCIUM 8.6 mg/dL (8.5-10.1); CARBON DIOXIDE 32.1 mmol/L (21-32); CHLORIDE SERUM 106 mmol/L (98-107); CREATININE SERUM 0.9 mg/dL (0.6-1.0); GLUCOSE SERUM 115 mg/dL (74-106); POTASSIUM SERUM 4.2 mmol/L (3.5-5.1); SODIUM SERUM 144 mmol/L (136-145)
[2018-08-29 07:12] LABS: BASOPHIL % 0.3 % (0-2); PLATELET COUNT 342 x10^3mcL (130-400); RED CELL DISTRIBUTION WIDTH 15.3 % (11.5-14.5)
--- NOTE | 2018-08-29 07:20 | NUR ---
SEEN IN BED AAOX4. BREATHING E/U ON ROOM AIR. STATED USED BIPAP TO SLEEP LAST NIGHT. TELE#18 NSR. ON FULL LIQUID DIET. ABDN ROUND AND SOFT, ACTIVE BS, DENIES NAUSEA OR PAIN AT THIS TIME. ABD DRSG INTACT, DRY. ABLE TO GET OUT OF BED BY HERSELF AND SIT ON THE CHAIR. NOTED QUAD CANE AT BEDSIDE. S/L TO RFA AND RAC INTACT AND PATENT. PLAN OF CARE INFORMED, CALL LIGHT PLACED WITHIN EASY REACH.
[2018-08-29 08:10] VITALS: BP 139/69
--- NOTE | 2018-08-29 09:30 | NUR ---
SCHEDULED AM MEDS GIVEN. TOLERATED TO CARDIAC DIET WELL. SON AT BEDSIDE.
--- NOTE | 2018-08-29 11:51 | NUR ---
SEEN BY DOCTOR MONTOYA, DRSG CHANGED, NOTED DRY INCISION WITH TEODORA, WOUND PHOTO TAKEN, DRSG APPLIED. OK TO BE DISCHARGED BY DOCTOR MONTOYA, TASHIA-TK MADE AWARE.
[2018-08-29 12:10] VITALS: BP 139/69
[2018-08-29 12:14] VITALS: BP 139/69
--- NOTE | 2018-08-29 12:35 | NUR ---
DISCHARGE INSTRUCTION EXPLAINED AND GIVEN TO PATIENT AND PATIENT'S DAUGHTER, WHO IS AWAKE,ALERT, ORIENTED X4, VERBALIZED UNDERSTANDING. S/L TO RAC AND RFA REMOVED NO REDNESS OR SIGNS OF INFECTIONS NOTED, DRSG APPLIED. TELEMETRY#18 RETURNED TO [place]. DENIES PAIN OR DISCOMFORT UPON DISCHARGE. BROUGHT VIA WHEELCHAIR ACCOMPANIED BY DAUGHTER AND BIOMASS TECHNICIAN SERA TO [facility]. PATIENT REPORTED MISSING HER FRONT/UPPER DENTURE, ABRAHAM GUY AND STREET SPRINKLER MADE AWARE.
--- NOTE | 2018-08-29 15:29 | NUR ---
PHYSICAL THERAPY DAILY NOTES CO-SIGN All documentation done by the Student Support Services Director for 08/29/18 has been reviewed. I agree with the documentation. Reviewed/Co-Signed by: Lorrie Oleary Documentation Done by:LILIAN MA
--- NOTE | 2018-08-30 15:09 | NUR ---
PHYSICAL THERAPY DAILY NOTES CO-SIGN All documentation done by the Fermenting Cellar Dropper for 08/30/18 has been reviewed. I agree with the documentation. Reviewed/Co-Signed by: Lorrie Oleary Documentation Done by:LILAIN MA
== END 2018-08-29 12:30 | disposition home or self-care (01) | DRG 335 ==
LOC: ED 10:43 → DU 13:28 → MU 13:28 → IC 13:28 → MU 14:33 → IC 08-25 12:30 → DU 08-27 18:08
PROVIDERS: Emergency Medicine; Surgery; ADMIT Internal Medicine
PROC: 0DN80ZZ Release Small Intestine, Open Approach (ICD-10-PCS; 2018-08-25)
PROC: 0WUF0JZ Supplement Abdominal Wall with Synthetic Substitute, Open Approach (ICD-10-PCS; principal; 2018-08-25 09:30)
DX: K43.0 Incisional hernia with obstruction, without gangrene (principal); J95.821 Acute postprocedural respiratory failure; K56.7 Ileus, unspecified; Z68.41 Body mass index [BMI] 40.0-44.9, adult; K66.0 Peritoneal adhesions (postprocedural) (postinfection); I48.0 Paroxysmal atrial fibrillation; I10 Essential (primary) hypertension; K57.90 Diverticulosis of intestine, part unspecified, without perforation or abscess without bleeding; J44.9 Chronic obstructive pulmonary disease, unspecified; M19.90 Unspecified osteoarthritis, unspecified site; Z87.891 Personal history of nicotine dependence; E66.01 Morbid (severe) obesity due to excess calories; Z86.73 Personal history of transient ischemic attack (TIA), and cerebral infarction without residual deficits; Z71.3 Dietary counseling and surveillance
CPT/HCPCS: 36600; 90658; 97110-GP; 97112-GP; 97116-GP; 97530-GP; C9113; J0330; J0690; J1170; J1885; J1940; J2250; J2405; J2704; J2765; J3010; J3480; J3490; J3535; J7030; J7040; J7620; Q0092; Q9966; Q9967

== ENCOUNTER 2018-09-04 16:13 | Emergency (ER) | payer OTHER ==
[~2018-09-04] VITALS: Ht 144.8 cm; Wt 107.0 kg
[~2018-09-04 16:13] MED LIST changes: +CELEBREX200 MG PO; +COZAAR100 MG PO; +METOPROLOL SUCC50 M2 PO; +NOR10 PO; +PANTOPRAZOLE SO40 M1 PO
[2018-09-04 16:22] VITALS: BP 133/87; Ht 144.8 cm; Wt 107.0 kg
== END 2018-09-04 20:25 | disposition home or self-care (01) ==
LOC: ED 16:13
DX: K91.840 Postprocedural hemorrhage of a digestive system organ or structure following a digestive system procedure (principal); I10 Essential (primary) hypertension; Z86.73 Personal history of transient ischemic attack (TIA), and cerebral infarction without residual deficits; Z88.5 Allergy status to narcotic agent